=== PATIENT | female | born 1995 | race Caucasian/White ===

== ENCOUNTER 2020-07-23 11:44 | Outpatient (CLI) | payer SELFPAY ==
--- NOTE | 2020-07-23 11:45 | US_ITS ---
WS: [id number] ULTRASOUND ABDOMEN LIMITED CLINICAL INFORMATION: K80.20 - Calculus of gallbladder without cholecystitis without obstruction COMPARISON: FINDINGS: Liver Size: Normal. Craniocaudal length: 15.1 cm. Echogenicity: Normal. Surface nodularity: None. Mass (size and location): None. Bile ducts Intrahepatic ducts: Normal. Common bile duct diameter: 0.3 cm. Gallbladder Normal. Gallstones: None. Gallbladder sludge: None. Gallbladder wall thickening: None. Pericholecystic fluid: None. Sonographic Kent sign: Absent. Pancreas Normal as visualized. Right kidney: Normal. Hydronephrosis: None. Size: 9.9 cm x 4.7 cm x 4.6 cm. Abdominal aorta and IVC Visualized portions are normal. Ascites: None. US/US gall bladder [id number] IMPRESSION: 1. Normal liver and gallbladder. 2. Normal common bile duct. 3. No hydronephrosis in right kidney.
== END 2020-07-23 11:45 | disposition home or self-care (01) ==
LOC: RAD 11:46
PROVIDERS: Visit Provider Registered Nurse
DX: K80.20 Calculus of gallbladder without cholecystitis without obstruction (principal)
CPT/HCPCS: 76705

== ENCOUNTER → 2021-02-10 08:55 | Outpatient (BNVA) | payer BC, SELFPAY | PROVIDERS: PCP Registered Nurse; Visit Provider Registered Nurse | DX: N92.6 Irregular menstruation, unspecified (principal) | CPT/HCPCS: 81025 ==

== ENCOUNTER → 2021-12-28 14:39 | Outpatient (BNVA) | payer BC, SELFPAY | PROVIDERS: PCP Registered Nurse; Visit Provider Registered Nurse | DX: Z20.2 Contact with and (suspected) exposure to infections with a predominantly sexual mode of transmission (principal); F32.A Depression, unspecified | CPT/HCPCS: 87491; 87591; 87661 ==

== ENCOUNTER 2022-05-24 12:52 | Emergency (ER) | payer BC, SELFPAY ==
[2022-05-24 12:53] VITALS: BP 128/82; PULSE 98; RESP 20; TEMP 36.8; O2SAT 97; BMI 30.9
[2022-05-24 13:30] VITALS: BP 126/60; PULSE 98; O2SAT 98
[2022-05-24 13:43] LABS: Basophils % 0.3 %; Eosinophils # 0.1 10^3/uL (0.0-0.8); Eosinophils % 0.6 %; Hematocrit 34.5 % (37.0-47.0); Hemoglobin 11.2 g/dL (11.5-15.3); Lymphocytes # 2.7 10^3/uL (0.8-4.8); Lymphocytes % 25.6 %; Mean Corpuscular HGB Conc 32.5 g/dL (30.0-36.0); Mean Corpuscular Hemoglobin 28.9 pg (28.0-34.0); Mean Corpuscular Volume 89.1 fl (81-99); Mean Platelet Volume 10.5 fL (7.4-10.4); Monocytes # 0.7 10^3/uL (0.2-0.9); Monocytes % 6.4 %; Neutrophils # 7.02 10^3/uL (1.8-7.7); Neutrophils % 66.8 %; Nucleated Red Blood Cells % 0 %; Platelet Count 310 10^3/cmm (130-400); Red Blood Count 3.87 10^6/uL (4.1-5.3); Red Cell Distribution Width 12.1 % (12.1-15.1); White Blood Count 10.5 10^3/uL (4.0-10.0)
[2022-05-24 13:52] LABS: Add Urine Microscopic? NO; Charge for UA Resulting for Rev
--- NOTE | 2022-05-24 13:57 | ED_ITS ---
HPI - Female Genitourinary General: Chief complaint: Urogenital-Female Stated complaint: heavy vaginal bleeding sent by Time Seen by Provider: 05/24/22 13:03 Source: patient Mode of arrival: ambulatory History of Present Illness: 27-year-old female who presents emergency room complaining of heavy vaginal bleeding. She states she had her period stopped for a week and then began bleeding again she is reporting heavy bleeding for the last several days [place] 4 pads an hour she previous had a tubal ligation she is not on any, hormone replacement or oral contraceptive for management of menstrual cycle. No dysuria urgency or frequency. She states she is not having any pelvic cramping. MD elicited complaint: vaginal bleeding Onset (ago): day(s) Vaginal bleeding: heavy Exacerbating factors: none Relieving factors: none Associated symptoms: Reports vaginal bleeding; Deny abdominal pain, short of breath, fevers/chills, headache(s), nausea, rash, seizures, syncope, vaginal discharge or weakness Treatment prior to arrival: none Review of Systems Const: Denies: fever(s), chills, body aches, change in appetite, fatigue or malaise ENMT: Denies: throat pain, ear or mastoid pain, nasal discharge or nasal congestion Card: Denies: syncope Resp: Denies: dyspnea, productive cough or non-productive cough GI: Denies: abdominal pain or nausea : Denies: vaginal discharge Skin/Breast: Denies: rash or pruritus Neuro: Denies: headache(s) PFSH ED PFSH: Social History Smoking and tobacco status: current every day smoker Alcohol intake: never Adopted: No Caregiver/support person: No Lives independently: No Household members: spouse and children Sexually active: Yes Current gender identity: Female Physical Exam Const: GENERAL APPEARANCE: cooperative and comfortable ORIENTATIO N/CONSCIOUSNESS: Yes awake, Yes oriented to person, Yes oriented to place and Yes oriented to time HENMT: COMMON NORMALS: normocephalic, atraumatic and hearing grossly normal bilaterally HEAD & SCALP: normocephalic and atraumatic Resp: COMMON NORMALS: normal respiratory effort, No retractions, No use of accessory muscles and clear to auscultation bilaterally AUSCULTATION: clear to auscultation bilaterally Cardio: COMMON NORMALS: regular rate, regular rhythm and No murmurs present (Cardio) RATE: regular rate RHYTHM: regular rhythm GI: COMMON NORMALS: Soft to palpation and No hepatosplenomegaly present AUSCULTATION: Yes normoactive bowel sounds PALPATION: Yes Soft to palpation, No Tenderness to palpation present (GI), No Guarding due to palpation present (GI) and Yes No hepatosplenomegaly present : SPECULUM EXAM - VAGINA: Yes vaginal bleeding OB/EXTERNAL & SPECULUM: vaginal bleeding OTHER: Patient placed in dorsolithotomy position. Nurse present speculum introduced blood visualized in the cervical os was a few clots that were extracted. Small amount of blood oozing from the cervical os during exam very minor. GC chlamydia and wet mount done. No cervical motion tenderness noted. Extremity: COMMON NORMALS: normal to inspection, capillary refill normal, no clubbing, cyanosis or edema, no calf tenderness and no pedal edema Neuro: SENSORIUM/ORIENTATION: Yes oriented to person, Yes oriented to place and Yes oriented to time Skin: COMMON NORMALS: no rashes or lesions noted GENERAL SKIN EXAM: no rashes or lesions noted Course Vital Signs: Vital signs: Vital Signs Temperature 98.3 F 05/24/22 12:53 Pulse Rate 91 05/24/22 15:34 Respiratory Rate 20 H 05/24/22 12:53 Blood Pressure 116/61 05/24/22 15:34 Pulse Oximetry 98 05/24/22 15:34 Oxygen Delivery Me thod 05/24/22 15:00 MDM - Female Medical Decision Making Serum quantitative hCG less than 1. Ultrasound does not show any significant abnormalities cath UA was negative. She is not there is no masses or large uterine fibroids there is no evidence of cystitis no evidence of nephrolithiasis. Patient has menorrhagia. We will start her on medroxyprogesterone daily for 6 to 7 days at the end of that time she will have a withdrawal bleed did discuss it would be fairly significant if her bleeding does not stop in the next few days on medroxyprogesterone she is contact her regular doctor if her irregularities persist contact her regular doctor for evaluation of other potential treatment options. Medical Records I reviewed the patient's medical records. Lab Data I reviewed the patient's lab results. 05/24/22 13:26 05/24/22 13:26 Radiology Impressions Pelvis Ultrasound 05/24/22 14:17 IMPRESSION: Unremarkable pelvic ultrasound. Normal endometrium. Laboratory Results WBC 10.5 10^3/uL (4.0-10.0) H 05/24/22 13: RBC 3.87 10^6/uL (4.1-5.3) L 05/24/22 13:26 Hgb 11.2 g/dL (11.5-15.3) L 05/24/22 13:26 Hct 34.5 % (37.0-47.0) L 05/24/22 13:26 MCV 89.1 fl (81-99) 05/24/22 13:26 MCH 28.9 pg (28.0-34.0) 05/24/22 13: MCHC 32.5 g/dL (30.0-36.0) 05/24/22 13: RDW 12.1 % (12.1-15.1) 05/24/22 13:26 Plt Count 310 10^3/cmm (130-400) 05/24/22 13: MPV 10.5 fL (7.4-10.4) H 05/24/22 13:26 Neut % (Auto) 66.8 % 05/24/22 13:26 Lymph % (Auto) 25.6 % 05/24/22 13:26 [place] % (Auto) 6.4 % 05/24/22 13:26 Eos % (Auto) 0.6 % 05/24/22 13: Baso % (Auto) 0.3 % 05/24/22 13:26 Neut # (Auto) 7.02 10^3/uL (1.8-7.7) 05/24/22 13:26 Lymph # (Auto) 2.7 10^3/uL (0.8-4.8) 05/24/22 13:26 [place] # (Auto) 0.7 10^3/uL (0.2-0.9) 05/24/22 13:26 Eos # (Auto) 0.1 10^3/uL (0.0-0.8) 05/24/22 13:26 Baso # (Auto) 0.0 10^3/uL (0.0-0.1) 05/24/22 13:26 Nucleated RBC % (auto) 0 % 05/24/22 13:26 Nucleated RBCs # 0.0 /100WBC 05/24/22 13:26 Sodium 137 mmol/L (136-145) 05/24/22 13:26 Potassium 3.7 mmol/L (3.5-5.1) 05/24/22 13:26 Chloride 101 mmol/L (98-107) 05/24/22 13:26 Carbon Dioxide 25 mmol/L (22-29) 05/24/22 13:26 Anion Gap 14.7 (5-19) 05/24/22 13:26 BUN 11 mg/dL (6-20) 05/24/22 13:26 Creatinine 0.8 mg/dL (0.5-0.9) 05/24/22 13:26 GFR Calculation 87.4 mL/min (90-130) L 05/24/22 13:26 Glucose 110 mg/dL (65-115) 05/24/22 13:26 Calculated Osmolality 284 mOsm/kg (285-295) L 05/24/22 13:26 Calcium 8.8 mg/dL (8.5-10.5) 05/24/22 13:26 Total Bilirubin 0.2 mg/dL (0.15-1.2) 05/24/22 13:26 AST 15 U/L (0-32) 05/24/22 13:26 ALT 13 U/L (0-33) 05/24/22 13:26 Alkaline Phosphatase 57 U/L (35-105) 05/24/22 13:26 Total Protein 6.7 g/dL (6.6-8.7) 05/24/22 13:26 Albumin 3.9 g/dL (3.5-5.2) 05/24/22 13:26 Globulin 2.8 g/dL (1.3-4.6) 05/24/22 13:26 Ser , Semi-Qnt < 1.00 mIU/mL 05/24/22 13:26 Urine Color Yellow (Yellow) 05/24/22 13:40 Urine Appearance Clear (CLEAR) 05/24/22 13:40 Urine pH 7 (5-7) 05/24/22 13:40 Ur Specific [place] 1.010 (1.005-1.030) 05/24/22 13:40 Urine Protein Neg (Negative) 05/24/22 13:40 Urine Glucose (UA) Norm (Normal) 05/24/22 13:40 Urine Ketones Negative (Negative) 05/24/22 13:40 Urine Blood Neg (Negative) 05/24/22 13:40 Urine Nitrate Negative (Negative) 05/24/22 13:40 Urine Bilirubin Neg (Negative) 05/24/22 13:40 Urine Urobilinogen Norm mg/dL (Negative) 05/24/22 13:40 Ur Leukocyte Esterase Negative (Negative) 05/24/22 13:40 Discharge Plan Discharge Patient Disposition: Home Clinical Impression: Menorrhagia Condition: Stable Prescriptions: New medroxyprogesterone 10 mg tablet 10 mg PO DAILY 10 Days Qty: 10 0RF Rx Instructions: begin day 16 of cycle No Action ferrous sulfate 27 mg iron Tablet 27 mg PO DAILY Discharge Orders: Discharge ED (Routine); Ordered 05/24/22 Ordered By: Sidney Waldrop Referrals: Sharon Ayala FNP [Primary Care Provider] - Discharge Diet: Usual diet Discharge Activity: Resume usual activity Patient Instructions: Opioid Safety, Pain Management Activity Restrictions/Additional Instructions: You were seen today for abnormal heavy uterine bleeding. Your hemoglobin is stable who do recommend you follow-up with your primary care doctor with 7 to 10 days. Start on medroxyprogesterone given to you today 1 pill daily for 10 days this should slow and stop the bleeding however when you stop taking it medroxyprogesterone you will have another relatively heavy period. Follow-up with your primary care doctor if you have persistent problems. 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
[2022-05-24 14:00] VITALS: BP 116/63; PULSE 97; O2SAT 98
[2022-05-24 14:08] LABS: Bilirubin Urine Neg (Negative); Blood Urine Neg (Negative); Glucose Urine UA Norm (Normal); Ketones Urine Negative (Negative); Leukocyte Esterase Urine Negative (Negative); Nitrate Urine Negative (Negative); Protein Urine Neg (Negative); Urine Appearance Clear (CLEAR); Urine Color Yellow (Yellow); Urobilinogen Urine Norm (Negative); pH Urine 7 (5-7)
[2022-05-24 14:11] LABS: Alanine Aminotransferase 13 U/L (0-33); Albumin Level 3.9 g/dL (3.5-5.2); Alkaline Phosphatase 57 U/L (35-105); Anion Gap 14.7 (5-19); Aspartate Amino Transferase 15 U/L (0-32); Blood Urea Nitrogen 11 mg/dL (6-20); Calcium 8.8 mg/dL (8.5-10.5); Carbon Dioxide 25 mmol/L (22-29); Chloride 101 mmol/L (98-107); Globulin 2.8 g/dL (1.3-4.6); Glomerular Filtration Rate 87.4 mL/min (90-130); Glucose 110 mg/dL (65-115); Osmolality Calculated 284 mOsm/kg (285-295); Potassium 3.7 mmol/L (3.5-5.1); Sodium 137 mmol/L (136-145); Total Bilirubin 0.2 mg/dL (0.15-1.2); Total Protein 6.7 g/dL (6.6-8.7)
[2022-05-24 14:13] LABS: HCG Quantitative < 1.00 mIU/mL
--- NOTE | 2022-05-24 14:17 | US_ITS ---
WS: [id number] Transabdominal and transvaginal PELVIC ULTRASOUND HISTORY: menorrhagia COMPARISON: None available. Uterus: 7.2 cm x 4.2 cm x 4.4 cm. Normal size and echogenicity. No fibroids are identified. Endometrium: 0.3 cm. Normal homogeneity and size. There is a small amount of fluid along the lower en docervical canal. Right ovary: 2.7 cm x 2.8 cm x 2.1 cm; no solid or cystic mass. Normal vascularity. Numerous small fo llicles. Left ovary: 2.7 cm x 3.0 cm x 2.2 cm; no solid or cystic mass. Normal vascularity. No free fluid in the cul-de-sac. US/US pelvic complete* [id number] IMPRESSION: Unremarkable pelvic ultrasound. Normal endometrium.
[2022-05-24 15:00] VITALS: BP 113/60; PULSE 95; O2SAT 99
[2022-05-24 15:34] VITALS: BP 116/61; PULSE 91; O2SAT 98
== END 2022-05-24 15:35 | disposition home or self-care (01) ==
PROVIDERS: Nurse Practitioner Family; Emergency Provider Family Medicine; PCP Registered Nurse
DX: N92.0 Excessive and frequent menstruation with regular cycle (principal); F17.210 Nicotine dependence, cigarettes, uncomplicated
CPT/HCPCS: 76856; 80053; 81003; 81025; 84702; 85025; 87210; 87491; 87591; 96374; 99284; 99285; E0352

== ENCOUNTER 2022-11-24 21:44 | Emergency (ER) | payer BC, SELFPAY ==
[2022-11-24 21:49] VITALS: BP 145/72; PULSE 91; RESP 18; TEMP 36.6; O2SAT 98; BMI 31.8
--- NOTE | 2022-11-24 22:34 | USR_ITS ---
PROCEDURE INFORMATION: Exam: US Abdomen, Limited; Right Upper Quadrant Exam date and time: 11/24/2022 10:55 PM Age: 27 years old Clinical indication: Abdominal pain; Epigastric; Additional info: Ruq pain TECHNIQUE: Imaging protocol: Real time ultrasound of the abdomen with image documentation. Limited exam focused on the right upper quadrant. COMPARISON: US gall bladder [id number] 07/23/2020 12:06 PM FINDINGS: Liver: The liver is unremarkable in appearance. Gallbladder: Gallbladder contains multiple gallstones. No gallbladder wall thickening. No pericholecystic fluid. Negative sonographic Kent's sign reported. No biliary dilatation. Biliary ducts: No biliary dilatation. The common duct measures 2.3 mm in diameter. Pancreas: Pancreas is unremarkable in appearance. Right kidney: Right kidney measures 9.5 cm in length. No cyst or mass. No hydronephrosis. Inferior vena cava: The intrahepatic portion of the inferior vena cava is unremarkable. US/US gall bladder [id number] IMPRESSION: Gallbladder contains multiple gallstones. No gallbladder wall thickening. No pericholecystic fluid. Negative sonographic Kent's sign reported. No biliary dilatation.
--- NOTE | 2022-11-24 22:35 | ED_ITS ---
HPI - Nausea/Vomiting/Diarrhea General: Chief complaint: Nausea/Vomiting/Diarrhea Stated complaint: vomiting Time Seen by Provider: 11/24/22 22:16 Source: patient Mode of arrival: ambulatory Limitations: no limitations History of Present Illness: 27-year-old female states she been having nausea vomiting along with diarrhea over the last 3 days. States she has been having severe amount of vomiting with abdominal cramping. States was seen at [facility] 2 days ago had a CT scan told it was negative states she had increasing epigastric and right upper quadrant pain. She denies any fevers denies any worsening proving factors. Associated nausea: Yes Associated symtoms: Reports nausea; Denies chest pain, dysuria or headache(s) Review of Systems Const: Denies: fever(s), chills, body aches or change in appetite ENMT: Denies: throat pain or dental pain Card: Denies: chest pain Resp: Denies: dyspnea GI: Reports: abdominal pain, nausea and vomiting; Denies: diarrhea : Denies: dysuria Musc: Denies: neck pain or back pain Skin/Breast: Denies: rash Neuro: Denies: headache(s) PFSH ED PFSH: Social History Smoking and tobacco status: current every day smoker Alcohol intake: never Substance/Drug Use: never Adopted: No Caregiver/support person: No Lives independently: No Household members: spouse and children Sexually active: Yes Do you think of yourself as: Straight/Heterosexual Current gender identity: Female Physical Exam Const: COMMON NORMALS: no acute distress, patient oriented x3 and healthy appearing HENMT: COMMON NORMALS: normocephalic and atraumatic HEAD & SCALP: normocephalic and atraumatic Eye: COMMON NORMALS: Equal, round and reactive pupils present and EOMs intact bilaterally PUPIL: Yes Equal, round and reactive pupils present Neck/C-Spine: COMMON NORMALS: full ROM and supple Chest: COMMONS NORMALS: normal inspection of the chest and normal palpation of entire chest wall Resp: COMMON NORMALS: normal respiratory effort, No retractions, No use of accessory muscles and clear to auscultation bilaterally AUSCULTATION: clear t o auscultation bilaterally Cardio: COMMON NORMALS: regular rate, regular rhythm and No murmurs present (Cardio) RATE: regular rate RHYTHM: regular rhythm GI: COMMON NORMALS: Normal to inspection, nondistended, normoactive bowel sounds present, Soft to palpation, non-tender and no masses PALPATION: Yes Soft to palpation Extremity: COMMON NORMALS: normal to inspection and full ROM Neuro: COMMON NORMALS: patient oriented x3, moves all extremities and no focal motor deficits Psych: COMMON NORMALS: mental status grossly normal, Normal thought process present and cooperative THOUGHT PROCESS: Normal thought process present Skin: COMMON NORMALS: no rashes or lesions noted and no wounds GENERAL SKIN EXAM: no rashes or lesions noted Course Vital Signs: Vital signs: Vital Signs Temperature 97.9 F 11/24/22 21:49 Pulse Rate 61 11/24/22 23:23 Respiratory Rate 14 11/24/22 23:42 Blood Pressure 109/71 11/24/22 23:23 Pulse Oximetry 98 11/24/22 23:42 Oxygen Delivery Me thod Room Air 11/24/22 23:23 MDM - Nausea/Vomiting/Diarrhea Medical Decision Making Patient presents here with vomiting on abdominal pain ultrasound did show gallstones I did get her records from [facility] her CT scan there was negative blood work here is normal she has no signs of cholecystitis she feels improved here we will prescribe her pain meds nausea medicine for home get her surgery follow-up she is return if worsening she understands agrees to plan. Medical Records I reviewed the patient's medical records. Lab Data I reviewed the patient's lab results. 11/24/22 22:38 11/24/22 22:38 Radiology Impressions Gallbladder Ultrasound 11/24/22 22:34 IMPRESSION: Gallbladder contains multiple gallstones. No gallbladder wall thickening. No pericholecystic fluid. Negative sonographic Kent's sign reported. No biliary dilatation. Laboratory Results WBC 14.22 10^3/uL (3.29-11.43) H 11/24/22 22:38 RBC 5.17 10^6/uL (3.85-5.65) 11/24/22 22:38 Hgb 13.30 g/dL (11.27-16.99) 11/24/22 22:38 Hct 41.4 % (36-47) 11/24/22 22:38 MCV 80.1 fl (85-98) L 11/24/22 22:38 MCH 25.7 pg (27-33) L 11/24/22 22:38 MCHC 32.1 g/dL (30-55) 11/24/22 22:38 RDW 16.6 % (12.1-15.1) H 11/24/22 22:38 Plt Count 373 10^3/cmm (157-399) 11/24/22 22:38 MPV 10.4 fL (7.4-10.4) 11/24/22 22:38 Neut % (Auto) 83.1 % 11/24/22 22:38 Lymph % (Auto) 11.0 % 11/24/22 22:38 [place] % (Auto) 5.1 % 11/24/22 22:38 Eos % (Auto) 0.1 % 11/24/22 22:38 Baso % (Auto) 0.3 % 11/24/22 22:38 Neut # (Auto) 11.82 10^3/uL (1.8-7.7) H 11/24/22 22:38 Lymph # (Auto) 1.6 10^3/uL (0.8-4.8) 11/24/22 22:38 [place] # (Auto) 0.7 10^3/uL (0.2-0.9) 11/24/22 22:38 Eos # (Auto) 0.0 10^3/uL (0.0-0.8) 11/24/22 22:38 Baso # (Auto) 0.0 10^3/uL (0.0-0.1) 11/24/22 22:38 Nucleated RBC % (auto) 0 % 11/24/22 22:38 Nucleated RBCs # 0.0 /100WBC 11/24/22 22:38 Sodium 140 mmol/L (136-145) 11/24/22 22:38 Potassium 3.7 mmol/L (3.5-5.1) 11/24/22 22:38 Chloride 102 mmol/L (98-107) 11/24/22 22:38 Carbon Dioxide 22 mmol/L (22-29) 11/24/22 22:38 Anion Gap 19.7 (5-19) H 11/24/22 22:38 BUN 18 mg/dL (6-20) 11/24/22 22:38 Creatinine 0.9 mg/dL (0.5-0.9) 11/24/22 22:38 GFR Calculation 76.3 mL/min (90-130) L 11/24/22 22:38 Glucose 106 mg/dL (65-115) 11/24/22 22:38 Calculated Osmolality 292 mOsm/kg (285-295) 11/24/22 22:38 Calcium 9.8 mg/dL (8.5-10.5) 11/24/22 22:38 Total Bilirubin 0.3 mg/dL (0.15-1.2) 11/24/22 22:38 AST 15 U/L (0-32) 11/24/22 22:38 ALT 18 U/L (0-33) 11/24/22 22:38 Alkaline Phosphatase 70 U/L (35-105) 11/24/22 22:38 Total Protein 8.6 g/dL (6.6-8.7) 11/24/22 22:38 Albumin 4.9 g/dL (3.5-5.2) 11/24/22 22:38 Globulin 3.7 g/dL (1.3-4.6) 11/24/22 22:38 Lipase 39 U/L (13-60) 11/24/22 22:38 HCG, Qual Negative (Negative) 11/24/22 22:38 Discharge Plan Discharge Patient Disposition: Home Clinical Impression: Cholelithiasis, Vomiting Condition: Stable Prescriptions: New hydrocodone-acetaminophen 5-325 mg tablet 1 tab PO Q6H PRN (Reason: pain) Qty: 14 0RF ondansetron 4 mg tablet,disintegrating 4 mg PO Q6H PRN (Reason: nausea and vomiting) Qty: 14 0RF No Action ferrous sulfate 27 mg iron Tablet 27 mg PO DAILY Discharge Orders: Discharge ED (Routine); Ordered 11/24/22 Ordered By: Sofi Pascual Referrals: David Noland MD [Physician] - 1-3 days Sharon Ayala FNP [Primary Care Provider] - Discharge Diet: Advance as tolerated Discharge Activity: Resume usual activity Patient Instructions: Gallstones (ED), Opioid Safety 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
[2022-11-24] MEDS: sodium chloride 0.9% 1,000 ML 999 ML IV (22:41)
[2022-11-24 22:43] VITALS: RESP 16
[2022-11-24] MEDS: morphine 4 mg/mL SDV 1 mL IVP (22:43)
[2022-11-24] MEDS: metoclopramide 5 mg/mL SDV 2 mL 10 MG IVP (22:43)
[2022-11-24] MEDS: diphenhydrAMINE 50 mg/mL SDV 1mL IVP (22:43)
[2022-11-24 22:45] LABS: Basophils % 0.3 %; Eosinophils % 0.1 %; Hematocrit 41.4 % (36-47); Lymphocytes # 1.6 10^3/uL (0.8-4.8); Mean Corpuscular HGB Conc 32.1 g/dL (30-55); Mean Corpuscular Hemoglobin 25.7 pg (27-33); Mean Corpuscular Volume 80.1 fl (85-98); Mean Platelet Volume 10.4 fL (7.4-10.4); Monocytes # 0.7 10^3/uL (0.2-0.9); Monocytes % 5.1 %; Neutrophils # 11.82 10^3/uL (1.8-7.7); Neutrophils % 83.1 %; Nucleated Red Blood Cells % 0 %; Platelet Count 373 10^3/cmm (157-399); Red Blood Count 5.17 10^6/uL (3.85-5.65); Red Cell Distribution Width 16.6 % (12.1-15.1); White Blood Count 14.22 10^3/uL (3.29-11.43)
[2022-11-24 22:59] LABS: HCG, Serum Qual Negative (Negative)
[2022-11-24 23:03] LABS: Alanine Aminotransferase 18 U/L (0-33); Albumin Level 4.9 g/dL (3.5-5.2); Alkaline Phosphatase 70 U/L (35-105); Anion Gap 19.7 (5-19); Aspartate Amino Transferase 15 U/L (0-32); Blood Urea Nitrogen 18 mg/dL (6-20); Calcium 9.8 mg/dL (8.5-10.5); Carbon Dioxide 22 mmol/L (22-29); Chloride 102 mmol/L (98-107); Globulin 3.7 g/dL (1.3-4.6); Glomerular Filtration Rate 76.3 mL/min (90-130); Glucose 106 mg/dL (65-115); Lipase 39 U/L (13-60); Osmolality Calculated 292 mOsm/kg (285-295); Potassium 3.7 mmol/L (3.5-5.1); Sodium 140 mmol/L (136-145); Total Bilirubin 0.3 mg/dL (0.15-1.2); Total Protein 8.6 g/dL (6.6-8.7)
[2022-11-24 23:23] VITALS: BP 109/71; PULSE 61; RESP 14; O2SAT 98
[2022-11-24 23:42] VITALS: RESP 14; O2SAT 98
[2022-11-24] MEDS: HYDROmorphone 1 mg/mL INJ 1 mL IVP (23:42)
[2022-11-24] MEDS: ondansetron 2 mg/ML SDV 2 mL 4 MG IVP (23:44)
[2022-11-25 00:13] VITALS: BP 106/77; RESP 14; O2SAT 98
--- NOTE | 2022-11-25 09:01 | DCPLANNER ---
Addendum entered by Deb Perkins 12/02/22 11:03: Patient did attend appointment scheduled with general surgery Addendum entered by Deb Perkins 11/25/22 13:00: Patient has a follow up appointment scheduled for Tuesday, November 29, 2022 at 8:[address] Sinha at general surgery. Original Note: manager cardiac had message to schedule a follow up appointment for patient with general surgery. manager cardiac sent patients information to the front office staff at general surgery. Patients information will be printed and reviewed. Clinic will call patient with appointment information.
== END 2022-11-25 00:16 | disposition home or self-care (01) ==
PROVIDERS: Emergency Provider Emergency Medicine; PCP Registered Nurse
DX: K80.20 Calculus of gallbladder without cholecystitis without obstruction (principal); R11.10 Vomiting, unspecified
CPT/HCPCS: 76705; 80053; 83690; 84703; 85025; 96361; 96374; 96375; 99284; J1170; J1200; J2270; J2405; J2765; J7030

== ENCOUNTER 2022-12-15 09:32 | Day surgery (SDC) | payer BC, SELFPAY ==
[2022-12-14 13:13] VITALS: BMI 29.9
[2022-12-15] VITALS (17 sets, daily range): BP systolic 115–137; BP diastolic 47–84; PULSE 62–80; RESP 14–20; TEMP 36.1–36.8; O2SAT 95–100
[2022-12-15 10:24] LABS: OR HCG Qualitative Urine Negative (Negative)
--- NOTE | 2022-12-15 10:24 | P.ANESASSM_ITS ---
Pre-Anesthetic Assessment Height/Weight: Height 1.6 m Weight 76.657 kg Temp Pulse Resp BP Pulse Ox O2 Del Method 98.0 F 80 16 128/75 100 Room Air 12/15/22 09:52 12/15/22 09:52 12/15/22 09:52 12/15/22 09:52 12/15/22 09:52 12/15/22 09:54 Operation Date: 12/15/22 11:10 Proposed Procedures p 46788 lap sandy K80.20(Not Applicable) - James Sinha DO Familial anesthetic complications: none Was Beta Bette taken within 24 hours: N/A Was Clonidine taken within 24 hours: N/A Last intake: Intake Last Liquid Date 12/14/22 Last Liquid Time 22:00 Last Solid Date 12/14/22 Last Solid Time 20:00 Social Tobacco and No alcohol Exam alert, oriented x 3, clear to auscultation bilaterally and regular rate & rhythm Airway Submandibular: within normal limits Cervical ROM: within normal limits Mallampati: Class II Dentition: full Neuropsych Anxiety and Depression Anesthetic Plan ASA status: 2 Medications/Allergies Home Medications Medication Instructions Recorded Confirmed Last Taken Type No Known Home Medications 12/14/22 12/14/22 Unknown History Allergies Allergy/AdvReac Type Severity Reaction Status Date / Time No Known Allergies Allergy Verified 12/14/22 13:10 [facility] Anesthesia Medical History Hx of appendicitis Surgical History Hx of section Family History Denies family history of Anesthesia complication Social History Smoking and tobacco status: current every day smoker Alcohol intake: never Substance/Drug Use: never Adopted: No Caregiver/support person: No Lives independently: No Household members: spouse and children Sexually active: Yes Do you think of yourself as: Straight/Heterosexual Current gender identity: Female Female Reproductive History Date of last menstrual period: 11/14/22 Data Anesthesia Cardiac Studies: No Data to Display
[2022-12-15] MEDS: diphenhydrAMINE 50 mg/mL SDV 1mL 12.5 MG IVP (10:32)
[2022-12-15] MEDS: scopolamine 1.5 Patch 1 PATCH TRANSDERMA (10:32)
[2022-12-15] MEDS: sodium chloride 0.9% 1,000 ML 30 ML IV (10:32)
[2022-12-15] MEDS: ondansetron 2 mg/ML SDV 2 mL 4 MG IVP (10:33)
--- NOTE | 2022-12-15 10:45 | W.PM.OPSUD ---
Surgery/Procedure H&P Update DATE OF PROCEDURE: December 15, 2022 DATE H&P PERFORMED: 11/29/22 H&P UPDATE INFORMATION: I have reviewed H&P completed within last 30 days, I have examined patient prior to procedure and No changes to prior documentation PLANNED PROCEDURE: Operation Date: 12/15/22 11:10 Proposed Procedures p 01059 lap sandy K80.20(Not Applicable) - James Sinha DO
[2022-12-15] MEDS: ceFAZolin 2,000 MG in sodium chloride 0.9% (plus) 50 ML 100 MG IV (10:53)
[2022-12-15] MEDS: lidocaine-epi 2% 20 mL INJ 6 ML INJECTION (11:34)
--- NOTE | 2022-12-15 11:36 | P.OP_ITS ---
Operative Report Date of procedure: December 15, 2022 Pre-op diagnosis: Symptomatic cholelithiasis Post-op diagnosis: same Procedure done: Laparoscopic cholecystectomy Implants: None Specimens removed/disposition: Gallbladder Surgeon: James Sinha DO Anesthesia: General Estimated blood loss (mL): 5 Complications: None apparent Brief History: This very pleasant 77-year-old female who was diagnosed with symptomatic cholelithiasis. laparoscopic cholecystectomy was indicated. The risk and benefits were explained and documented. Procedure: Patient was wheeled into the operative room and placed on the OR table in a supine position. Abdomen was inspected prepped and draped in usual sterile fashion. Time-out was performed and all present were in agreement. A 15 blade scalp was used to make a stab incision in the left upper quadrant and intra- abdominal insufflation was achieved using a Veress needle. After localizing the tissue incisions were made and a 5 millimeter trocar was placed into the umbilicus as well as 2 in the right upper quadrant. A 12 millimeter trocar was placed in the epigastrium. Gallbladder was grasped and elevated. The triangle of Calot was carefully dissected using blunt dissection and electrocautery until the triangle of Calot clearly identified. The cystic duct was clipped proximally and double clipped distally. The duct was then ligated proximally. The cystic artery was doubly clipped and ligated. The gallbladder was then removed from the liver bed using electrocautery. The gallbladder was removed from the abdomen using an Endo-Catch bag through the epigastric incision. The liver bed was inspected and no bleeding was seen. The abdomen was irrigated and suctioned. All ports removed. Skin was washed and dried. Incisions were closed with 4-0 Monocryl in a subcuticular interrupted fashion. Skin glue was applied. Patient tolerated the procedure well.
[2022-12-15] MEDS: fentaNYL 50 mcg/mL INJ 2mL IVP (12:24)
[2022-12-15] MEDS: HYDROcodone-acetaminophen 10-325 mg Tablet 1 TAB PO (13:41)
--- NOTE | 2022-12-15 14:03 | ANE.PACU2 ---
Inpatient post-anesthesia follow up: Airway intact: Yes Vital signs: Temperature 98.2 F Pulse Rate 79 Respiratory Rate 16 Blood Pressure 125/80 Pulse Oximetry 96 Oxygen Delivery Me thod Room Air Oxygen Flow Rate 6 Fraction of Inspir ed Oxygen Hydration adequate: Yes Nausea and vomiting: No Pain level: 3 Mental status: Baseline
== END 2022-12-15 14:10 | disposition home or self-care (01) ==
PROVIDERS: Anesthesiology; PCP Registered Nurse; Visit Provider Surgery
PROC: 0FT44ZZ Resection of Gallbladder, Percutaneous Endoscopic Approach (ICD-10-PCS; CPT 47562; principal; 2022-12-15 11:00)
DX: K80.10 Calculus of gallbladder with chronic cholecystitis without obstruction (principal); F17.200 Nicotine dependence, unspecified, uncomplicated
CPT/HCPCS: 47562; 81025; 84703; 88304; J0690; J1200; J2250; J2405; J2704; J2710; J3010; J3490; J7030

== ENCOUNTER → 2023-05-23 16:07 | Outpatient (BNVA) | payer BC, SELFPAY | PROVIDERS: PCP Registered Nurse; Visit Provider Registered Nurse | DX: J02.0 Streptococcal pharyngitis (principal) | CPT/HCPCS: 87880 ==

== ENCOUNTER → 2023-06-06 17:53 | Outpatient (BNVA) | payer SELFPAY | PROVIDERS: PCP Registered Nurse; Visit Provider Registered Nurse Neonatal Intensive Care | DX: Z20.6 Contact with and (suspected) exposure to human immunodeficiency virus [HIV] (principal) | CPT/HCPCS: 87806 ==

== ENCOUNTER → 2023-12-07 13:56 | Outpatient (BNVA) | payer OTHER, SELFPAY | PROVIDERS: PCP Registered Nurse; Visit Provider Registered Nurse | DX: N76.0 Acute vaginitis (principal); B96.89 Other specified bacterial agents as the cause of diseases classified elsewhere | CPT/HCPCS: 81000 ==

== ENCOUNTER → 2024-06-11 11:35 | Outpatient (BNVA) | payer OTHER, SELFPAY | PROVIDERS: PCP Registered Nurse | DX: Z20.2 Contact with and (suspected) exposure to infections with a predominantly sexual mode of transmission (principal); R82.90 Unspecified abnormal findings in urine | CPT/HCPCS: 87086; 87491; 87591; 87661 ==

== ENCOUNTER 2024-09-11 09:50 | Day surgery (SDC) | payer MEDICAID, SELFPAY ==
[2024-09-11] VITALS (18 sets, daily range): BP systolic 75–123; BP diastolic 37–74; PULSE 52–82; RESP 16–18; TEMP 36.4–36.6; O2SAT 92–100; BMI 30.1
--- NOTE | 2024-09-11 10:18 | W.PM.OPSUD ---
Surgery/Procedure H&P Update DATE OF PROCEDURE: September 11, 2024 DATE H&P PERFORMED: 09/05/24 H&P UPDATE INFORMATION: I have reviewed H&P completed within last 30 days, I have examined patient prior to procedure and No changes to prior documentation PLANNED PROCEDURE: Operation Date: 09/11/24 11:35 Proposed Procedures p Excision of Pilonidal Cyst 69002, L05.91(Not Applicable) - Mainor Finnegan MD
--- NOTE | 2024-09-11 10:38 | ANES.PREANE2 ---
Pre-Anesthetic Assessment Height/Weight: Height 1.6 m Weight 77.111 kg Temp Pulse Resp BP Pulse Ox O2 Del Method 97.6 F 62 16 105/70 97 Room Air 09/11/24 10:32 09/11/24 10:32 09/11/24 10:32 09/11/24 10:32 09/11/24 10:32 09/11/24 10:32 Operation Date: 09/11/24 11:35 Proposed Procedures p Excision of Pilonidal Cyst 73662, L05.91(Not Applicable) - Mainor Finnegan MD Familial anesthetic complications: None Was Beta Bette taken within 24 hours: N/A Was Clonidine taken within 24 hours: N/A Last intake: Intake Last Liquid Date 09/10/24 Last Liquid Time 21:00 Last Solid Date 09/10/24 Last Solid Time 21:00 Social Tobacco and No alcohol Exam alert, oriented x 3, clear to auscultation bilaterally and regular rate & rhythm Airway Mallampati: Class I Dentition: chipped Anesthetic Plan ASA status: 1 Anesthesia: General Risk of > 500 ml blood loss (7ml/kg in children): No Medications/Allergies Home Medications ?Medication ?Instructions ?Recorded ?Confirmed ?Last Taken ?Type ibuprofen 800 mg tablet 800 mg PO TID 7 days #21 tabs 09/02/24 09/05/24 Unknown Rx doxycycline hyclate 100 mg capsule 100 mg PO BID 09/10/24 09/10/24 09/10/24 History Allergies Allergy/AdvReac Type Severity Reaction Status Date / Time No Known Allergies Allergy Verified 09/10/24 08:34 PENDING SALE TO [facility] Anesthesia Medical History Hx of appendicitis Surgical History Hx of section Family History Denies family history of Anesthesia complication Social History Smoking and tobacco/nicotine status: never used tobacco/nicotine Alcohol intake: never Substance/Drug Use: never Adopted: No Caregiver/support person: No Lives independently: No Household members: spouse and children Sexually active: Yes Do you think of yourself as: Straight/Heterosexual Current gender identity: Female
[2024-09-11 11:04] LABS: OR HCG Qualitative Urine Negative (Negative)
[2024-09-11] MEDS: piperacillin-tazobactam 3.375 GM in sodium chloride 0.9% (plus) 50 ML IV (11:06)
[2024-09-11] MEDS: sodium chloride 0.9% 1,000 ML 30 ML IV (11:09)
[2024-09-11] MEDS: lidocaine-epi 1% PF 1:200,000 30 mL SDV INJECTION (11:37)
[2024-09-11] MEDS: BUPivacaine 0.5% INJ 30 mL INJECTION (11:40)
--- NOTE | 2024-09-11 11:47 | P.OP_ITS ---
Operative Report Date of procedure: September 11, 2024 Pre-op diagnosis: Pilonidal cyst Post-op diagnosis: same Post-op findings: Pilonidal cyst resected. 3 x 2 cm area and a 1 x 1 cm area more proximally. Procedure done: Pilonidal cyst resection Implants: N/A Specimens removed/disposition: Pilonidal cyst sent to pathology Pathology: Pilonidal cyst sent to pathology Surgeon: Mainor Finnegan MD Senior Administrative Services Officer: N/A Anesthesia: General Estimated blood loss (mL): 10 Complications: N/A Findings: Pilonidal cyst resected. 3 x 2 cm area and a 1 x 1 cm area more proximally. Condition: stable Disposition: same day Brief History: 29-year-old female who presented initially with an infected pilonidal cyst. Discussed risk and benefits and patient agreed to proceed with pilonidal cyst excision. Procedure: Consent was obtained in the preop area. Patient was brought into the OR. Preoperative Ancef was administered. General anesthesia was induced. Patient was positioned prone. The perineum and back was prepped and draped in usual sterile fashion. Local infiltration using 1% lidocaine and 0.5% bupivacaine 10 cc was carried out. An elliptical incision was carried out around the two pilonidal cyst sites (1x1cm area more proximally, 3x2cm area more distally). Electrocautery was used to dissect down to the fascial layer. The pilonidal cyst was then resected and was passed off and sent to pathology. Adequate hemostasis was achieved using electrocautery. Both wounds were irrigated with 200cc of normal saline The fascial layer was closed using 2-0 Vicryl. Dermal layer was closed using 2-0 Vicryl in an interrupted fashion. Epidermis was closed with 2-0 nylon in a vertical mattress fashion. Fluffs were applied. Secured using mesh panties. The patient woke up for anesthesia without any complications.
[2024-09-11] MEDS: scopolamine 1 mg PATCH 1 PATCH TRANSDERMA (12:41)
--- NOTE | 2024-09-11 12:44 | PC.NURSE ---
1215 - documentation done by this filing writer - patient care by Maren Segovia RN in isolation room per protocol - per OR nurse - pt does not have packing
[2024-09-11] MEDS: fentaNYL 50 mcg/mL INJ 2mL IVP (12:51)
--- NOTE | 2024-09-11 14:15 | ANE.PACU2 ---
Inpatient post-anesthesia follow up: Airway intact: Yes Vital signs: Temperature 97.8 F Pulse Rate 60 Respiratory Rate 16 Blood Pressure 116/68 Pulse Oximetry 98 Oxygen Delivery Me thod Room Air Oxygen Flow Rate 2 Fraction of Inspir ed Oxygen Hydration adequate: Yes Nausea and vomiting: No Pain level: 1 Mental status: Baseline
== END 2024-09-11 14:19 | disposition home or self-care (01) ==
PROVIDERS: Anesthesiology; PCP Registered Nurse; Visit Provider Student in an Organized Health Care Education/Training Program
PROC: (CPT 11771; principal; 2024-09-11 11:35)
DX: L05.91 Pilonidal cyst without abscess (principal)
CPT/HCPCS: 11771; 81025; 88304; A4216; A7015; J0131; J1100; J1200; J1885; J2405; J2543; J2704; J3010; J3490; J7030; J9999